=== PATIENT | female | born 1955 | race Caucasian/White ===

== ENCOUNTER 2016-11-24 14:36 | Emergency (ER) | payer OTHER ==
[~2016-11-24] VITALS: Ht 157.5 cm; Wt 65.5 kg
[2016-11-24 14:40] VITALS: Ht 157.5 cm; Wt 65.5 kg
[2016-11-24] MEDS ORDERED: KETOROLAC 30 MG INJ IV STA (15:21)
--- NOTE | 2016-11-24 15:29 | ERD ---
ER Documentation Chief Complaint Date/Time DATE: 11/24/16 TIME: 15:24 Chief Complaint Complains of back pain since yesterday HPI This is a 61-year-old female presenting to the emergency department with back pain that radiates to left lower abdomen 2 days. Patient states symptoms started yesterday. Patient describes pain as constant and dull with intermittent sharp pain. Patient rating pain 8/10. Patient states laying down improves her symptoms. Patient states walking and positional changes aggravates her pain. No diarrhea or constipation. Last bowel movement was today. No dysuria, hematuria, urinary frequency or urinary urgency. No nausea or vomiting. Patient took Motrin at home with some relief of symptoms. ROS All systems reviewed and are negative except as per history of present illness. Medications Home Meds Active Scripts Hydrocodone/Acetaminophen ([place] 5-325 Tablet) 1 Each Tablet, 1 TAB PO Q6H Y for PAIN, #15 TAB Prov:JUANY LESLIE NP 11/24/16 Ibuprofen* (Motrin*) 600 Mg Tab, 600 MG PO Q6, #20 TAB Prov:JUANY LESLIE NP 11/24/16 Physical Exam Vitals Vital Signs Date Time Temp Pulse Resp B/P Pulse Ox O2 Delivery O2 Flow Rate FiO2 11/24/16 17:08 98.2 68 20 149/70 98 Room Air 11/24/16 14:40 98.6 63 20 147/72 98 Physical Exam Const: No acute distress Head: Atraumatic Eyes: Normal Conjunctiva ENT: Normal External Ears, Nose and Mouth. Neck: Full range of motion..~ No meningismus. Resp: Clear to auscultation bilaterally Cardio: Regular rate and rhythm, no murmurs Abd: Soft,suprapubic tenderness, non distended. Normal bowel sounds Skin: No petechiae or rashes Back: No midline or flank tenderness. No CVA tenderness. Ext: No cyanosis, or edema. Full mobility to left and right hip. No bony tenderness or obvious abnormalities. Neur: Awake and alert Psych: Normal Mood and Affect Result Diagram: 11/24/16 1550 11/24/16 1550 Results 24 hrs Laboratory Tests Test 11/24/16 15:50 11/24/16 15:58 White Blood Count 11.310^3/ul Red Blood Count 4.6710^6/ul Hemoglobin 14.5g/dl Hematocrit 41.6% Mean Corpuscular Volume 89.1fl Mean Corpuscular Hemoglobin 31.0pg Mean Corpuscular Hemoglobin Concent 34.9g/dl Red Cell Distribution Width 12.4% Platelet Count 29548^3/UL Mean Platelet Volume 9.4fl Neutrophils % 64.4% Lymphocytes % 25.6% Monocytes % 6.9% Eosinophils % 2.0% Basophils % 0.8% Nucleated Red Blood Cells % 0.0/100WBC Neutrophils # (Manual) 710^3/ul Lymphocytes # 2.910^3/ul Monocytes # 0.810^3/ul Eosinophils # 0.210^3/ul Basophils # 0.110^3/ul Nucleated Red Blood Cells # 0.010^3/ul Sodium Level 138mmol/L Potassium Level 3.6mmol/L Chloride Level 99mmol/L Carbon Dioxide Level 26mmol/L Anion Gap 17 Blood Urea Nitrogen 11mg/dl Creatinine 0.70mg/dl Glucose Level 102mg/dl Calcium Level 9.6mg/dl Total Bilirubin 0.3mg/dl Direct Bilirubin 0.00mg/dl Indirect Bilirubin 0.3mg/dl Aspartate Amino Transf (AST/SGOT) 26IU/L Alanine Aminotransferase (ALT/SGPT) 36IU/L Alkaline Phosphatase 72IU/L Total Protein 8.1g/dl Albumin 4.7g/dl Globulin 3.40g/dl Albumin/Globulin Ratio 1.38 Lipase 54U/L Bedside Urine pH (LAB) 6.5 Bedside Urine Protein (LAB) Negative Bedside Urine Glucose (UA) Negative Bedside Urine Ketones (LAB) Negative Bedside Urine Blood Negative Bedside Urine Nitrite (LAB) Negative Bedside Urine Leukocyte Esterase (L Trace Current Medications Medications (Trade) Dose Ordered Sig/Hao Route PRN Reason Start Time Stop Time Status Last Admin Dose Admin Ketorolac Tromethamine (Toradol) 30 mg ONCE STAT IV 11/24/16 15:21 11/24/16 15:24 DC 11/24/16 15:45 Procedures/MDM [place] [address] Radiology Main Line: [phone] DIAGNOSTIC IMAGING REPORT Patient: SHANTANU PEOPLES : 1955 Age: 61 Sex: F MR #: [id number] DOS: 11/24/16 1521 Ordering MD: JUANY LESLIE NP Location: [facility] Room/Bed: PROCEDURE: US Pelvis. CLINICAL INDICATION: Pelvic pain TECHNIQUE: Multiple sonographic images of the pelvis were obtained utilizing adan scale, Doppler and color flow imaging with transabdominal technique. The images were reviewed on a PACS workstation. COMPARISON: None. FINDINGS: The uterus and ovaries have been removed. No adnexal masses or pelvic free fluid are noted. IMPRESSION: Status post hysterectomy and bilateral oophorectomy. Otherwise, unremarkable exam. If further characterization of the organs of the pelvis is needed MRI should be considered. [place] [address] Radiology Main Line: [phone] DIAGNOSTIC IMAGING REPORT Patient: SHANTANU PEOPLES : 1955 Age: 61 Sex: F MR #: [id number] DOS: 11/24/16 1521 Ordering MD: JUANY LESLIE NP Location: [facility] Room/Bed: PROCEDURE: CT Abdomen and Pelvis without contrast. CLINICAL INDICATION: Abdominal pain. TECHNIQUE: CT scan of the abdomen and pelvis without contrast was performed on a multidetector high-resolution CT scanner. The patient was scanned without intravenous contrast. Coronal and sagittal reformatted images were obtained from the axial source images. Images were reviewed on a high-resolution PACS workstation. One or more of the following dose reduction techniques were used: Automated exposure control, adjustment of the mA and/or kV according to patient size, use of iterative reconstruction technique. The total exam CTDI equals 8.75 mGy and the total exam DLP equals 444.09 mGy-cm. COMPARISON: None. FINDINGS: CT abdomen: The lung bases are clear. The heart size is normal, without pericardial thickening or effusion. The liver is normal in size and density without focal mass or intrahepatic biliary dilatation. The spleen is normal in size and homogeneous in density. The stomach is grossly unremarkable. The pancreas as visualized is normal. The gallbladder and biliary tree are unremarkable and there is no evidence for biliary dilatation. The adrenal glands are symmetric and normal. The kidneys are symmetrically unremarkable as well. No renal calculus or obstructive uropathy or mass lesion is seen. The aorta is of normal caliber. There is no retroperitoneal lymphadenopathy. The juanis hepatis region is clear. The small bowel and mesentery, as visualized , are unremarkable. CT pelvis: The small bowel loops situated within the pelvis are unremarkable. The uterus is surgically absent. The pelvic sidewalls and inguinal regions are clear. Scattered diverticula are present throughout the descending and sigmoid colon without evidence of diverticulitis. The appendix is normal. No mass, lymphadenopathy, or free fluid is seen. No acute inflammation is seen. There is grade 1 anterolisthesis of L4-L5 without evidence of spondylolysis. Facet arthropathy is present L4-S1. No osteolytic or osteoblastic lesion is detected. IMPRESSION: 1. No abdominal or pelvic acute inflammatory process, mass, or lymphadenopathy. 2. Diverticulosis without evidence of diverticulitis. 3. Status post hysterectomy. Therefore grade 1 anterolisthesis of L4-L5 without evidence of spondylolysis. MDM: This is a 61-year-old female presenting to emergency department with left lower back pain that radiates to left lower quadrant of abdomen. Patient took Motrin at home yesterday without relief of pain. Patient's last bowel movement was today. Denies nausea or vomiting. No diarrhea. Vital signs are stable. CBC, CMP, Urine dip, urine , IV start and Toradol 30mg IV ordered. IV access obtained and labs drawn per staffing branch manager. Patient given Toradol [address] abdomen and pelvis without contrast and pelvic ultrasound ordered. CBC shows no significant anemia or infection. CMP shows no significant electrolyte imbalance. Liver enzymes are normal. Creatinine is normal. Urine dip shows trace leukocytosis otherwise negative and this is likely a dirty catch. Urine is negative. CT abdomen pelvis reviewed by radiologist as no abdominal or pelvic acute inflammatory process, mass or lymphadenopathy. Diverticulosis without evidence of diverticulitis. Pelvic ultrasound reviewed by radiologist as status post hysterectomy and bilateral oophorectomy. Otherwise unremarkable. Discussed findings with patient. Differential diagnosis includes but not limited to acute appendicitis, diverticulitis, diverticulosis, bowel obstruction, constipation, infectious colitis, irritable bowel syndrome, inflammatory bowel disease, viral gastroenteritis, abdominal aortic aneurysm, food intolerance, celiac disease, UTI, pyelonephritis, nephrolithiasis, acute urinary retention or colorectal cancer. I doubt any emergent conditions such as appendicitis, diverticulitis, bowel obstruction, abdominal aortic aneurysm at this time due to normal vital signs and normal lab results. Patient is appropriate for outpatient management. Instructed patient to follow- up with primary care provider in the next 2-3 days for reassessment and additional management. Return to ED for any high fever, chest pain, difficulty breathing, shortness breath, wheezing, vomiting, diarrhea, abdominal pain or any new or worsening symptoms. Patient verbalizes understanding. All questions answered at discharge. Departure Diagnosis: Primary Impression: Diverticulosis Condition: Stable JUANY LESLIE NP Nov 24, 2016 15:29
[2016-11-24 15:53] LABS: URINE BLOOD (Dip) POC Negative (NEGATIVE)
[2016-11-24 16:08] LABS: BASOPHIL # 0.1 10^3/ul (0.0-0.1); BASOPHILS % 0.8 % (0.0-2.0); EOSINOPHILS # 0.2 10^3/ul (0.0-0.5); HEMATOCRIT 41.6 % (37.0-47.0); HEMOGLOBIN 14.5 g/dl (12.0-16.0); LYMPHOCYTES # 2.9 10^3/ul (0.8-2.9); LYMPHOCYTES % 25.6 % (15.0-51.0); MEAN CORPUSCULAR HGB CONC 34.9 g/dl (32.0-37.0); MEAN CORPUSCULAR VOLUME 89.1 fl (82.0-101.0); MEAN PLATELET VOLUME 9.4 fl (7.4-10.4); MONOCYTE # 0.8 10^3/ul (0.3-0.9); MONOCYTES % 6.9 % (0.0-11.0); NEUTROPHILS % 64.4 % (39.0-77.0); PLATELET COUNT 293 10^3/UL (140-415); RED BLOOD COUNT 4.67 10^6/ul (4.20-5.40); RED CELL DISTRIBUTION WIDTH 12.4 % (11.5-14.5); WHITE BLOOD COUNT 11.3 10^3/ul (4.8-10.8)
--- NOTE | 2016-11-24 16:13 | RADRPT ---
PROCEDURE: US Pelvis. CLINICAL INDICATION: Pelvic pain TECHNIQUE: Multiple sonographic images of the pelvis were obtained utilizing adan scale, Doppler a nd color flow imaging with transabdominal technique. The images were reviewed on a PACS workstatio n. COMPARISON: None. FINDINGS: The uterus and ovaries have been removed. No adnexal masses or pelvic free fluid are noted. IMPRESSION: Status post hysterectomy and bilateral oophorectomy. Otherwise, unremarkable exam. If further characterization of the organs of the pelvis is needed MRI should be considered. RPTAT: AA .Garcia Barger MD, Date Time Electronically viewed and signed by .Garcia Barger MD, on 11/24/2016 16:13 .P/
--- NOTE | 2016-11-24 16:29 | RADRPT ---
PROCEDURE: CT Abdomen and Pelvis without contrast. CLINICAL INDICATION: Abdominal pain. TECHNIQUE: CT scan of the abdomen and pelvis without contrast was performed on a multidetector hig h-resolution CT scanner. The patient was scanned without intravenous contrast. Coronal and sagittal reformatted images were obtained from the axial source images. Images were reviewed on a high-resol [employer] PACS workstation. One or more of the following dose reduction techniques were used: Automated exposure control, adjustment of the mA and/or kV according to patient size, use of iterative recon struction technique. The total exam CTDI equals 8.75 mGy and the total exam DLP equals 444.09 mGy-c m. COMPARISON: None. FINDINGS: CT abdomen: The lung bases are clear. The heart size is normal, without pericardial thickening or effusion. The liver is normal in size and density without focal mass or intrahepatic biliary dilatation. The spleen is normal in size and homogeneous in density. The stomach is grossly unremarkable. The panc reas as visualized is normal. The gallbladder and biliary tree are unremarkable and there is no koko dence for biliary dilatation. The adrenal glands are symmetric and normal. The kidneys are symmetr ically unremarkable as well. No renal calculus or obstructive uropathy or mass lesion is seen. The aorta is of normal caliber. There is no retroperitoneal lymphadenopathy. The juanis hepatis reg ion is clear. The small bowel and mesentery, as visualized, are unremarkable. CT pelvis: The small bowel loops situated within the pelvis are unremarkable. The uterus is surgically absent. The pelvic sidewalls and inguinal regions are clear. Scattered diverticula are present throughout the descending and sigmoid colon without evidence of diverticulitis. The appendix is normal. No mass , lymphadenopathy, or free fluid is seen. No acute inflammation is seen. There is grade 1 anterolisthesis of L4-L5 without evidence of spondylolysis. Facet arthropathy is p resent L4-S1. No osteolytic or osteoblastic lesion is detected. IMPRESSION: 1. No abdominal or pelvic acute inflammatory process, mass, or lymphadenopathy. 2. Diverticulosis without evidence of diverticulitis. 3. Status post hysterectomy. Therefore grade 1 anterolisthesis of L4-L5 without evidence of spondy lolysis. RPTAT: AA .Missael Ibarra MD, MD Date Time Electronically viewed and signed by .Missael Ibarra MD, MD on 11/24/2016 16:28 .A/
[2016-11-24 16:43] LABS: ALBUMIN 4.7 g/dl (3.3-4.9); ALBUMIN/GLOBULIN RATIO 1.38; BILIRUBIN,INDIRECT 0.3 mg/dl (0-1.1); BILIRUBIN,TOTAL 0.3 mg/dl (0.2-1.3); CALCIUM 9.6 mg/dl (8.4-10.2); CREATININE 0.7 mg/dl (0.44-1.00); POTASSIUM 3.6 mmol/L (3.5-5.1); TOTAL PROTEIN 8.1 g/dl (6.1-8.1)
[2016-11-24] MEDS ORDERED: IBUP-1542 PO (16:55)
[2016-11-24] MEDS ORDERED: HYDR-906 PO (17:01)
[2016-11-24 17:08] VITALS: BP 149/70; PULSE 68; RESP 20; TEMP 98.2
== END 2016-11-24 17:09 | disposition home or self-care (01) ==
LOC: FTE 14:36
DX: K57.30 Diverticulosis of large intestine without perforation or abscess without bleeding (principal); R10.2 Pelvic and perineal pain
CPT/HCPCS: 36415; 74176; 76856; 80053; 81003; 83690; 85025; 96374; 99285; J1885

== ENCOUNTER 2018-09-21 20:28 | Emergency (ER) | payer BC, OTHER ==
[~2018-09-21] VITALS: Ht 142.2 cm; Wt 60.8 kg
[~2018-09-21 20:28] MED LIST: HYDR-4011 PO; IBUP-1542 PO
[2018-09-21 20:37] VITALS: Ht 142.2 cm; Wt 60.8 kg
--- NOTE | 2018-09-22 02:21 | ERD ---
ER Documentation Chief Complaint Chief Complaint CP X'S 2 DAYS; FATIGUE X'S 5 DAYS HPI This 63-year female chest pain for 2 days. She also says is been very stressful for the past 5 days and feels mildly fatigued. She denies any fevers chills nausea vomiting. She says she does not have agatha chest pain but just feels palpitations mainly over the past 2 days. She denies any fever or chills. She denies any recent travel. She denies any other current complaints. ROS All systems reviewed and are negative except as per history of present illness. Medications Home Meds Active Scripts Hydrocodone/Acetaminophen ([place] 5-325 Tablet) 1 Each Tablet, 1 TAB PO Q6H PRN for PAIN, #15 TAB Prov:JUANY LESLIE NP 11/24/16 Ibuprofen* (Motrin*) 600 Mg Tab, 600 MG PO Q6, #20 TAB Prov:JUANY LESLIE NP 11/24/16 Allergies Allergies: Coded Allergies: No Known Allergy (Unverified , 09/21/18) PMhx/Soc History of Surgery: Yes (, total hysterectomy) Anesthesia Reaction: No Hx Neurological Disorder: No Hx Respiratory Disorders: No Hx Cardiac Disorders: Yes (HTN, HLD) Hx Psychiatric Problems: Yes (depression) Hx Miscellaneous Medical Probl: Yes (HTN, dyslipidemia) Hx Alcohol Use: Yes (glass of wine nightly) Hx Substance Use: No Hx Tobacco Use: Yes Smoking Status: Current every day smoker Physical Exam Vitals Vital Signs Date Temp Pulse Resp B/P (MAP) Pulse Ox O2 O2 Flow FiO2 Time Delivery Rate 09/22/18 75 19 94/66 (75) 100 Room Air 01:26 09/22/18 83 20 106/71 98 Room Air 00:34 (83) 09/21/18 83 20 104/66 100 Room Air 23:03 (79) 09/21/18 87 14 113/72 98 Room Air 22:00 (86) 09/21/18 98.7 117 20 125/79 96 20:37 (94) Physical Exam Const: No acute distress Head: Atraumatic Eyes: Normal Conjunctiva ENT: Normal External Ears, Nose and Mouth. Neck: Full range of motion. No meningismus. Resp: Clear to auscultation bilaterally Cardio: Regular rate and rhythm, no murmurs Abd: Soft, non tender, non distended. Normal bowel sounds Skin: No petechiae or rashes Back: No midline or flank tenderness Ext: No cyanosis, or edema Neur: Awake and alert Psych: Normal Mood and Affect Result Diagram: 09/21/18215209/21/182152 Results 24 hrs Laboratory Tests Test 09/21/18 21:53 White Blood Count 10.7 10^3/ul Red Blood Count 4.66 10^6/ul Hemoglobin 14.6 g/dl Hematocrit 42.2 % Mean Corpuscular Volume 90.6 fl Mean Corpuscular Hemoglobin 31.3 pg Mean Corpuscular Hemoglobin Concent 34.6 g/dl Red Cell Distribution Width 12.9 % Platelet Count 301 10^3/UL Mean Platelet Volume 9.4 fl Immature Granulocytes % 0.500 % Neutrophils % 61.5 % Lymphocytes % 28.3 % Monocytes % 6.8 % Eosinophils % 2.1 % Basophils % 0.8 % Nucleated Red Blood Cells % 0.0 /100WBC Immature Granulocytes # 0.050 10^3/ul Neutrophils # 6.6 10^3/ul Lymphocytes # 3.0 10^3/ul Monocytes # 0.7 10^3/ul Eosinophils # 0.2 10^3/ul Basophils # 0.1 10^3/ul Nucleated Red Blood Cells # 0.0 10^3/ul Sodium Level 140 mmol/L Potassium Level 3.8 mmol/L Chloride Level 106 mmol/L Carbon Dioxide Level 25 mmol/L Anion Gap 9 Blood Urea Nitrogen 17 mg/dl Creatinine 0.65 mg/dl Est Glomerular Filtrat Rate mL/min > 60 mL/min Glucose Level 126 mg/dl Calcium Level 9.7 mg/dl Troponin I < 0.012 ng/ml Procedures/[facility] EKG: Rate/Rhythm: Irregular rhythm, normal rate QRS, ST, T-waves: [No changes consistent w/ acute ischemia] Impression: Rate controlled A. fib Chest X-ray 1V Interpreted by me: Soft Tissue: No acute abnormalities Bones: No acute abnormalities Mediastinum/Cardiac Silhouette/Lungs: [No acute abnormalities] Medical decision making: This is a 63-year female as well as with new onset A. fib. She denies any chest pain. She said her palpitations have since resolved. Reviewing her case, patient does have new onset atrial fibrillation. I spoke with Hernan Cornell of [facility]. He advised that I discharge patient on full- strength aspirin and he will arrange for cardiology outpatient follow-up tomorrow morning. I discussed this with the patient and she seems amenable to this care plan and diagnosis. I advised her to return immediately via 911 for any chest pain nausea vomiting fevers chills or any return of sensation of palpitations. Departure Diagnosis: Primary Impression: A-fib Atrial fibrillation type: unspecified Qualified Codes: I48.91 - Unspecified atrial fibrillation Condition: Stable NATHAN RAMIREZ Sep 22, 2018 02:21
[2018-09-22] MEDS ORDERED: LORA-441 PO (02:23)
[2018-09-22] MEDS ORDERED: ASPI325T30 PO (02:23)
[2018-09-22 02:47] VITALS: BP 104/73; PULSE 86; RESP 15
== END 2018-09-22 03:04 | disposition home or self-care (01) ==
LOC: E/R 20:28
DX: I48.91 Unspecified atrial fibrillation (principal); I10 Essential (primary) hypertension; F17.210 Nicotine dependence, cigarettes, uncomplicated
CPT/HCPCS: 36415; 71045; 80048; 84484; 85025; 93005